=== PATIENT | female | born 1950 | race Caucasian/White ===

== ENCOUNTER 2024-04-09 10:34 | Day surgery (SDC) | payer OTHER ==
[2024-04-01 11:46] VITALS: BMI 19.7
[2024-04-09 10:55] VITALS: TEMP 97.1
[2024-04-09 13:23] VITALS: RESP 18
[2024-04-09 13:26] VITALS: BP 110/56; PULSE 57
== END 2024-04-09 13:00 | disposition home or self-care (01) ==
LOC: FASU-ENDO 10:34
PROVIDERS: ATTEND Internal Medicine Gastroenterology
PROC: 0DB68ZX Excision of Stomach, Via Natural or Artificial Opening Endoscopic, Diagnostic (ICD-10-PCS; 2024-04-09)
PROC: 0DB48ZX Excision of Esophagogastric Junction, Via Natural or Artificial Opening Endoscopic, Diagnostic (ICD-10-PCS; 2024-04-09)
PROC: 0DB98ZX Excision of Duodenum, Via Natural or Artificial Opening Endoscopic, Diagnostic (ICD-10-PCS; principal; 2024-04-09 12:08)
DX: K29.50 Unspecified chronic gastritis without bleeding (principal); K51.00 Ulcerative (chronic) pancolitis without complications; R10.13 Epigastric pain
CPT/HCPCS: 88305-TC; 88342-TC